=== PATIENT | male | born 1975 | race Caucasian/White ===

== ENCOUNTER 2018-05-21 10:28 | Inpatient (IN) ==
[2018-05-21 11:36] LABS: Basophils # 0.1 10*3/uL (0.0-0.2); Basophils % 0.6 % (0.0-0.8); Eosinophils % 0.4 % (0.00-10.9); Hematocrit 47.1 VOL% (42.0-52.0); Hemoglobin 16.4 GM/DL (14.0-18.0); Immature Granulocytes % 0.4 %; Immature Granulocytes Absolute 0.03 #; Lymphocytes # 1.7 10*3/uL (1.4-4.0); Lymphocytes % 20.2 % (21.2-54.2); Mean Corpuscular HGB Conc 34.8 GM/DL (32-36); Mean Corpuscular Hemoglobin 31 PG (27-34); Mean Corpuscular Volume 88.4 FL (87-102); Mean Platelet Volume 10.1 FL (9.6-12.0); Monocytes # 0.4 10*3/uL (0.11-0.8); Neutrophils # 6.2 10*3/uL (1.4-7.4); Neutrophils % 73.4 % (38.7-73.9); Platelet Count 215 T/CUMM (130-400); Red Blood Count 5.33 MC/CUMM (3.8-5.5); Red Cell Distribution Width 12.2 % (9.3-17.3); White Blood Count 8.4 T/CUMM (4-12)
[2018-05-21 11:47] LABS: Calcium 8.4 MG/DL (8.5-10.1); Osmolality,Calculated 283.1 MOS/KG (273-304); Potassium 3.7 MMOL/L (3.5-5.1)
[2018-05-21 12:02] LABS: Rheumatoid Factor < 15 IU/ML (<15)
[2018-05-21] MEDS ORDERED: LEVOFLOXACIN INJ 500 MG in PREMIX 1 EACH IV STA (13:33)
[2018-05-21] MEDS ORDERED: SODIUM CHLORIDE 0.9% 1,000 ML IV STA (13:33)
[2018-05-21] MEDS ORDERED: LEVOFLOXACIN INJ 100 ML IV ONE (13:44)
[2018-05-21] MEDS: ONDANSETRON 4 MG/2 ML VIAL IV PRN (17:35)
[2018-05-21] MEDS: ALBUTEROL/IPRATROPIUM 3 ML NEB RESP TX SCH (19:37)
[2018-05-22] MEDS: ALBUTEROL/IPRATROPIUM 3 ML NEB RESP TX SCH ×4 (00:13→19:43)
[2018-05-22] MEDS: guaiFENesin/CODEINE 5 ML LIQUID PO PRN ×4 (00:17→19:48)
[2018-05-22 03:33] LABS: Basophils # 0.1 10*3/uL (0.0-0.2); Basophils % 0.7 % (0.0-0.8); Eosinophils # 0.1 10*3/uL (0.0-0.87); Eosinophils % 1.1 % (0.00-10.9); Hematocrit 42.6 VOL% (42.0-52.0); Hemoglobin 14.5 GM/DL (14.0-18.0); Immature Granulocytes % 0.3 %; Immature Granulocytes Absolute 0.02 #; Lymphocytes # 2.2 10*3/uL (1.4-4.0); Lymphocytes % 30.1 % (21.2-54.2); Mean Corpuscular Hemoglobin 31 PG (27-34); Mean Corpuscular Volume 89.5 FL (87-102); Mean Platelet Volume 10.1 FL (9.6-12.0); Monocytes # 0.6 10*3/uL (0.11-0.8); Monocytes % 8.1 % (1.7-12.7); Neutrophils # 4.4 10*3/uL (1.4-7.4); Neutrophils % 59.7 % (38.7-73.9); Platelet Count 169 T/CUMM (130-400); Red Blood Count 4.76 MC/CUMM (3.8-5.5); Red Cell Distribution Width 12.4 % (9.3-17.3); White Blood Count 7.4 T/CUMM (4-12)
[2018-05-22 04:07] LABS: Calcium 8.3 MG/DL (8.5-10.1)
[2018-05-22 04:08] LABS: Potassium 3.2 MMOL/L (3.5-5.1); Risk Ratio 2.13; Thyroid Stimulating Hormone 0.681 uIU/ml (0.358-3.74)
[2018-05-22 07:33] LABS: Amorphous Crystals,Urine Moderate /HPF (Few); Apearance,Urine CLOUDY (Clear); Bacteria,Urine Occasional /HPF (Few); Bilirubin,Urine Negative (Negative); Blood, Urine Negative (Negative); Glucose,Urine (UA) Negative (Negative); Ketones,Urine 20 mg/dL (Negative); Mucus,Urine Many /LPF (Occasional); Nitrite,Urine Negative (Negative); Protein,Urine Negative; Squamous Epithelial Cell,Urine Occasional /HPF (0-10); Urine Color Amber (Yellow); Urine Urobilinogen < 2.0 EU/DL (0.2-1.0)
[2018-05-22] MEDS: amLODIPine 5 MG TABLET PO SCH (09:08)
[2018-05-22] MEDS: POTASSIUM CHLORIDE 20 MEQ TABLET PO SCH (09:08)
[2018-05-22] MEDS: PANTOPRAZOLE 40 MG TABLET PO SCH (09:08)
[2018-05-22] MEDS: POTASSIUM CHLORIDE 20 MEQ TABLET PO PRN ×4 (09:08→17:17)
[2018-05-22] MEDS: cefTRIAXone 1,000 MG in SYRINGE 1 EACH IV SCH (09:08)
[2018-05-22] MEDS: ACETAMINOPHEN 325 MG TABLET PO PRN (12:01)
[2018-05-22] MEDS: LEVOFLOXACIN INJ 750 MG in PREMIX 1 EACH IV SCH (14:37)
[2018-05-22 18:17] LABS: Hematocrit 42.7 VOL% (42.0-52.0); Hemoglobin 14.6 GM/DL (14.0-18.0)
[2018-05-23] MEDS: ALBUTEROL/IPRATROPIUM 3 ML NEB RESP TX SCH ×4 (02:29→19:17)
[2018-05-23 05:52] LABS: Basophils % 0.5 % (0.0-0.8); Eosinophils # 0.3 10*3/uL (0.0-0.87); Eosinophils % 3.7 % (0.00-10.9); Hematocrit 43.3 VOL% (42.0-52.0); Hemoglobin 15.3 GM/DL (14.0-18.0); Immature Granulocytes % 0.4 %; Immature Granulocytes Absolute 0.03 #; Lymphocytes # 1.7 10*3/uL (1.4-4.0); Lymphocytes % 22.2 % (21.2-54.2); Mean Corpuscular HGB Conc 35.3 GM/DL (32-36); Mean Corpuscular Hemoglobin 31 PG (27-34); Mean Corpuscular Volume 86.9 FL (87-102); Mean Platelet Volume 10.5 FL (9.6-12.0); Monocytes # 0.6 10*3/uL (0.11-0.8); Monocytes % 7.6 % (1.7-12.7); Neutrophils # 5.1 10*3/uL (1.4-7.4); Neutrophils % 65.6 % (38.7-73.9); Platelet Count 196 T/CUMM (130-400); Red Blood Count 4.98 MC/CUMM (3.8-5.5); Red Cell Distribution Width 12.7 % (9.3-17.3); White Blood Count 7.7 T/CUMM (4-12)
[2018-05-23 06:05] LABS: Calcium 8.7 MG/DL (8.5-10.1); Osmolality,Calculated 281.3 MOS/KG (273-304); Potassium 3.8 MMOL/L (3.5-5.1)
[2018-05-23 06:07] LABS: Calcium 8.7 MG/DL (8.5-10.1); Osmolality,Calculated 277.5 MOS/KG (273-304); Potassium 3.8 MMOL/L (3.5-5.1)
[2018-05-23] MEDS: cefTRIAXone 1,000 MG in SYRINGE 1 EACH IV SCH (08:39)
[2018-05-23] MEDS: PANTOPRAZOLE 40 MG TABLET PO SCH (08:39)
[2018-05-23] MEDS: POTASSIUM CHLORIDE 20 MEQ TABLET PO SCH (08:39)
[2018-05-23] MEDS: amLODIPine 5 MG TABLET PO SCH (08:39)
[2018-05-23] MEDS: ONDANSETRON 4 MG/2 ML VIAL IV PRN ×2 (08:49→18:56)
[2018-05-23] MEDS: guaiFENesin/CODEINE 5 ML LIQUID PO PRN ×2 (08:50→15:20)
[2018-05-23] MEDS: LEVOFLOXACIN INJ 750 MG in PREMIX 1 EACH IV SCH (08:52)
[2018-05-23] MEDS: ACETAMINOPHEN 325 MG TABLET PO PRN (12:02)
[2018-05-24] MEDS: ALBUTEROL/IPRATROPIUM 3 ML NEB RESP TX SCH ×4 (01:35→19:29)
[2018-05-24] MEDS: cefTRIAXone 1,000 MG in SYRINGE 1 EACH IV SCH (08:43)
[2018-05-24] MEDS: LEVOFLOXACIN INJ 750 MG in PREMIX 1 EACH IV SCH (08:44)
[2018-05-24] MEDS: PANTOPRAZOLE 40 MG TABLET PO SCH (08:44)
[2018-05-24] MEDS: POTASSIUM CHLORIDE 20 MEQ TABLET PO SCH (08:44)
[2018-05-24] MEDS: amLODIPine 5 MG TABLET PO SCH (08:44)
[2018-05-24] MEDS: guaiFENesin/CODEINE 5 ML LIQUID PO PRN ×2 (09:00→15:46)
[2018-05-24] MEDS: ONDANSETRON 4 MG/2 ML VIAL IV PRN ×2 (09:02→15:47)
[2018-05-24] MEDS ORDERED: VANCOMYCIN INJ 1,250 MG in SODIUM CHLORIDE 0.9% 250 ML IV SCH (10:00)
[2018-05-24] MEDS: BUTALBITAL/ACETAMIN/CAFFEINE 50-325-40 MG TABLET PO PRN ×2 (11:15→18:13)
[2018-05-25] MEDS: ALBUTEROL/IPRATROPIUM 3 ML NEB RESP TX SCH ×3 (01:06→14:10)
[2018-05-25] MEDS: BUTALBITAL/ACETAMIN/CAFFEINE 50-325-40 MG TABLET PO PRN (08:42)
[2018-05-25] MEDS: amLODIPine 5 MG TABLET PO SCH (08:44)
[2018-05-25] MEDS: POTASSIUM CHLORIDE 20 MEQ TABLET PO SCH (08:44)
[2018-05-25] MEDS: LEVOFLOXACIN INJ 750 MG in PREMIX 1 EACH IV SCH (08:45)
[2018-05-25 11:41] VITALS: BP 123/78
[2018-05-25] MEDS: PANTOPRAZOLE 40 MG TABLET PO SCH (14:08)
== END 2018-05-25 13:30 | disposition home or self-care (01) | DRG 195 ==
LOC: N.ED 10:28 → N.EDINP 15:34 → N.2E 16:32